=== PATIENT | male | born 1950 | race Caucasian/White ===

== ENCOUNTER 2017-06-03 14:28 | Outpatient (CLI) | payer OTHER ==
--- NOTE | 2017-06-03 15:55 | RAD ---
TWO VIEW CHEST: COMPARISON: No prior comparison. CLINICAL HISTORY: Rash. FINDINGS: Lungs are clear. Cardiac silhouette is at upper limits of normal in size. No effusion or pneumothor ax. Postsurgical change is seen at the right shoulder. IMPRESSION: No focal consolidation. POS: [facility]
== END 2017-06-03 14:29 | disposition home or self-care (01) ==
LOC: RAD 14:28
PROVIDERS: ATTEND Family Medicine
DX: R21 Rash and other nonspecific skin eruption (principal)
CPT/HCPCS: 71046

== ENCOUNTER 2018-06-07 13:56 | Outpatient (CLI) | payer OTHER ==
--- NOTE | 2018-06-07 14:33 | RAD ---
THREE VIEWS RIGHT FOOT: Comparison: None. History: Right foot pain. FINDINGS: Three views of the right foot shows no evidence of acute fracture or dislocation. There is joint spac e narrowing and osteophyte formation involving the second toe metatarsal phalangeal joint. IMPRESSION: Degenerative changes of the second toe without acute osseous abnormality. POS: [facility]
== END 2018-06-07 13:57 | disposition home or self-care (01) ==
LOC: RAD 13:56
PROVIDERS: ATTEND Thoracic Surgery (Cardiothoracic Vascular Surgery)
DX: M79.671 Pain in right foot (principal); M77.41 Metatarsalgia, right foot; L40.50 Arthropathic psoriasis, unspecified; M19.072 Primary osteoarthritis, left ankle and foot

== ENCOUNTER 2020-04-30 11:42 | Outpatient (CLI) | payer OTHER ==
--- NOTE | 2020-04-30 13:16 | RAD ---
LUMBAR SPINE 2 VIEWS: Date: 04/30/2020 HISTORY: Low back pain. COMPARISON: None. FINDINGS: Five non-rib bearing lumbar-type vertebra. No acute fracture or malalignment. There is some mild degenerative disc space narrowing at L3-4, as well as L5-S1 and L2-3. There is hig h grade facet arthrosis at L4-5 and L5-S1. No significant listhesis. Bridging anterior osteophyte at L3-4. Mild vascular calcifications at the aorta. IMPRESSION: Moderate spondylosis. No acute osseous abnormality. POS: [facility]
== END 2020-04-30 11:43 | disposition home or self-care (01) ==
LOC: RAD 11:42
PROVIDERS: ATTEND Internal Medicine Rheumatology
DX: M54.5 Low back pain (principal); M47.816 Spondylosis without myelopathy or radiculopathy, lumbar region; M47.817 Spondylosis without myelopathy or radiculopathy, lumbosacral region
CPT/HCPCS: 72100

== ENCOUNTER 2025-01-22 13:50 | Outpatient (CLI) | payer BC | END 2025-01-22 13:51 | disposition home or self-care (01) | LOC: RAD 13:50 | PROVIDERS: ATTEND Internal Medicine Rheumatology | DX: M79.642 Pain in left hand (principal); M79.641 Pain in right hand; M89.8X5 Other specified disorders of bone, thigh; M18.12 Unilateral primary osteoarthritis of first carpometacarpal joint, left hand; M19.042 Primary osteoarthritis, left hand; M19.041 Primary osteoarthritis, right hand ==